=== PATIENT | male | born 1940 | race Caucasian/White ===

== ENCOUNTER 2020-07-21 12:00 | Inpatient (IN) | payer MEDICARE ==
[~2020-07-21] VITALS: Ht 165.1 cm; Wt 68.5 kg
[2020-07-21] MEDS ORDERED: metformin (12:25)
[2020-07-21] MEDS ORDERED: DEXAMETHASONE 10 MG/ML VIAL IV ONE (13:15)
[2020-07-21 13:17] LABS: HEMATOCRIT. 45.3 % (42.0-52.0); HEMOGLOBIN. 15.2 g/dL (14.0-18.0); MEAN CORPUSCULAR HEMOGLOBIN 28.7 pg (28.0-32.0); MEAN CORPUSCULAR VOLUME 85.9 fL (80.0-94.0); MEAN PLATELET VOLUME 8.6 fl (7.4-10.4); PLATELET 399 x1000/uL (130-400); RED BLOOD CELL COUNT 5.27 mill/uL (4.7-6.1); RED CELL DISTRIBUTION WIDTH 14.4 % (11.6-14.6)
[2020-07-21 13:26] LABS: CHLORIDE 100 mEq/L (98-107)
[2020-07-21 13:30] LABS: INR 1.1; PARTIAL THROMBOPLASTIN TIME 29.9 sec (23.4-31.0)
[2020-07-21 13:44] LABS: PLATELET ESTIMATE NORMAL
[2020-07-21] MEDS ORDERED: SODIUM CHLORIDE 0.9% 1000ML BAG (SEPSIS BOLUS) IV ONE (14:15)
[2020-07-21] MEDS ORDERED: AZITHROMYCIN 500 MG in DEXT 5% WATER 250 ML IV ONE (14:15)
[2020-07-21] MEDS ORDERED: CEFTRIAXONE 1 G PREMIX 50 ML IV ONE (14:15)
[2020-07-21] MEDS ORDERED: MORPHINE SULFATE 2 MG/ML CPJ (NOT FOR IM USE) IV PRN (15:15)
[2020-07-21] MEDS ORDERED: DIPHENHYDRAMINE 50MG/ML VIAL IV PRN (15:15)
[2020-07-21] MEDS ORDERED: GUAIFENESIN 200MG/10ML SUGAR FREE UDC PO PRN (15:15)
[2020-07-21] MEDS ORDERED: MAGNESIUM/ALUMINUM HYDROXIDE/SIMETHICONE 30ML UDC PO PRN (15:15)
[2020-07-21] MEDS ORDERED: CLONIDINE 0.1MG TABLET PO PRN (15:15)
[2020-07-21] MEDS ORDERED: LORAZEPAM 2MG/ML CPJ IV PRN (15:15)
[2020-07-21] MEDS ORDERED: NA PHOS,M-B/NA PHOS,DI-BA ENEMA 118ML PR PRN (15:15)
[2020-07-21] MEDS ORDERED: AZITHROMYCIN 500 MG in DEXT 5% WATER 250 ML IV SCH (15:15)
[2020-07-21] MEDS ORDERED: IPRATROPIUM/ALBUTEROL 0.5-3(2.5)MG/3ML NEB NEB PRN (15:15)
[2020-07-21] MEDS ORDERED: ONDANSETRON HCL 4MG/2ML INJ IV PRN (15:15)
[2020-07-21] MEDS: ENOXAPARIN 40MG/0.4ML SYR SUBCUT SCH (16:36)
[2020-07-21] MEDS: ASCORBIC ACID 500 MG TABLET PO SCH (21:00)
[2020-07-21] MEDS: ERGOCALCIFEROL 50000UNITS CAPSULE PO SCH (21:00)
[2020-07-21 23:21] LABS: CHLORIDE 107 mEq/L (98-107)
[2020-07-21] MEDS: HYDROCODONE/ACETAMINOPHEN 5/325MG TABLET PO PRN (23:24)
[2020-07-22 03:57] LABS: BASOPHILS % 0.1 % (0.0-2.0); HEMATOCRIT. 43.6 % (42.0-52.0); HEMOGLOBIN. 13.9 g/dL (14.0-18.0); MEAN CORPUSCULAR HEMOGLOBIN 28.1 pg (28.0-32.0); MEAN CORPUSCULAR VOLUME 88.2 fL (80.0-94.0); MEAN PLATELET VOLUME 8.9 fl (7.4-10.4); MONOCYTES % 5.1 % (2.0-8.0); NEUTROPHILS % 82.8 % (40.0-76.0); PLATELET 354 x1000/uL (130-400); RED BLOOD CELL COUNT 4.94 mill/uL (4.7-6.1); RED CELL DISTRIBUTION WIDTH 14.4 % (11.6-14.6)
[2020-07-22 04:03] LABS: CHLORIDE 105 mEq/L (98-107)
[2020-07-22 04:10] LABS: LDL CHOLESTEROL 70 mg/dL (5-100)
[2020-07-22 04:12] LABS: HDL CHOLESTEROL 21 mg/dL (40-59); T4 FREE 1.13 ng/dL (0.76-1.46)
[2020-07-22] MEDS: HYDROCODONE/ACETAMINOPHEN 5/325MG TABLET PO PRN ×2 (04:53→06:13)
[2020-07-22 08:12] LABS: BG BASE EXCESS -5.5 mmol/L (-2.0-2.0); BG CARBOXYHEMOGLOBIN 0.4 % (0.5-1.5); BG DEOXYHEMOGLOBIN 6.8 % (0.0-5.0); BG HCO3 ACT 18.1 mmol/L (22.0-26.0); BG OXYGEN SATURATION 93.2 % (92.0-98.5); BG OXYHEMOGLOBIN 92.8 % (94.0-97.0); BG PCO2 30.2 mmHg (35.0-45.0); BG PH 7.396 (7.350-7.450); BG PO2 69.1 mmHg (75.0-100.0); BG SAMPLE SITE RIGHT BRACHIAL; BG TOTAL HEMOGLOBIN 13.9 g/dL (12.0-18.0); BG VENT MODE MASK - NRB
[2020-07-22] MEDS: ASCORBIC ACID 500 MG TABLET PO SCH ×2 (09:02→21:00)
[2020-07-22] MEDS: ASPIRIN 81MG EC TABLET PO SCH (09:02)
[2020-07-22 09:39] LABS: T4 FREE 1.05 ng/dL (0.76-1.46)
[2020-07-22] MEDS ORDERED: IOHEXOL-350 100 ML BOTTLE ONE (15:01)
[2020-07-22 15:42] LABS: CREATINE KINASE 45 IU/L (39-308); CREATINE KINASE MB FRACTION < 1.0 ng/mL (0.5-3.6)
[2020-07-22] MEDS: AZITHROMYCIN 500 MG in DEXT 5% WATER 250 ML IV SCH (16:16)
[2020-07-22] MEDS: ENOXAPARIN 40MG/0.4ML SYR SUBCUT SCH (16:22)
[2020-07-22] MEDS: CEFTRIAXONE SODIUM 1 G/VIAL IM SCH (19:00)
[2020-07-22] MEDS ORDERED: LIDOCAINE HCL/PF 1% 10 MG/ML 5ML VIAL IJ SCH (19:00)
[2020-07-22] MEDS: DEXAMETHASONE 10 MG/ML VIAL IV SCH (19:34)
[2020-07-23 01:30] LABS: CREATINE KINASE 67 IU/L (39-308)
[2020-07-23 01:31] LABS: CREATINE KINASE MB FRACTION < 1.0 ng/mL (0.5-3.6)
[2020-07-23 05:27] LABS: CREATINE KINASE 79 IU/L (39-308)
[2020-07-23 05:28] LABS: CREATINE KINASE MB FRACTION 1.3 ng/mL (0.5-3.6)
[2020-07-23 08:10] LABS: BG BASE EXCESS -4.6 mmol/L (-2.0-2.0); BG CARBOXYHEMOGLOBIN 0.9 % (0.5-1.5); BG DEOXYHEMOGLOBIN 3.4 % (0.0-5.0); BG HCO3 ACT 18.2 mmol/L (22.0-26.0); BG METHEMOGLOBIN 0.1 % (0.0-1.5); BG OXYGEN SATURATION 96.6 % (92.0-98.5); BG OXYHEMOGLOBIN 95.6 % (94.0-97.0); BG PCO2 28.2 mmHg (35.0-45.0); BG PH 7.427 (7.350-7.450); BG PO2 86.1 mmHg (75.0-100.0); BG SAMPLE SITE RIGHT BRACHIAL; BG TOTAL HEMOGLOBIN 15.1 g/dL (12.0-18.0); BG VENT MODE MASK - SIMPLE
[2020-07-23] MEDS: DEXAMETHASONE 10 MG/ML VIAL IV SCH (10:09)
[2020-07-23] MEDS: CEFTRIAXONE SODIUM 1 G/VIAL IM SCH (10:09)
[2020-07-23] MEDS: ASCORBIC ACID 500 MG TABLET PO SCH ×2 (12:23→21:19)
[2020-07-23] MEDS: ASPIRIN 81MG EC TABLET PO SCH (12:45)
[2020-07-23] MEDS: ENOXAPARIN 40MG/0.4ML SYR SUBCUT SCH (16:00)
[2020-07-23] MEDS ORDERED: ENOXAPARIN 60MG/0.6ML SYR SUBCUT NR (17:30)
[2020-07-23] MEDS: AZITHROMYCIN 500 MG in DEXT 5% WATER 250 ML IV SCH (18:06)
[2020-07-24 03:00] VITALS: BP 150/99
[2020-07-24 04:00] VITALS: BP_SYST 150; BP_SYST 197; BP_DIAS 99
[2020-07-24] MEDS ORDERED: METF-874 MT (05:08)
[2020-07-24] MEDS: BLOOD SUGAR DIAGNOSTIC STRIP TEST SCH ×4 (06:21→21:00)
[2020-07-24] MEDS: INSULIN LISPRO 100 UNITS/ML SUBCUT SCH ×4 (06:49→21:54)
[2020-07-24 07:26] LABS: BASOPHILS % 0.3 % (0.0-2.0); EOSINOPHILS % 0.1 % (0.0-5.0); HEMATOCRIT. 45.4 % (42.0-52.0); HEMOGLOBIN. 14.7 g/dL (14.0-18.0); LYMPHOCYTES % 8.3 % (20.0-50.0); MEAN CORPUSCULAR HEMOGLOBIN 28.2 pg (28.0-32.0); MEAN CORPUSCULAR VOLUME 87.1 fL (80.0-94.0); MONOCYTES % 6.3 % (2.0-8.0); PLATELET 485 x1000/uL (130-400); RED BLOOD CELL COUNT 5.21 mill/uL (4.7-6.1); RED CELL DISTRIBUTION WIDTH 14.6 % (11.6-14.6)
[2020-07-24 07:46] LABS: CHLORIDE 102 mEq/L (98-107)
[2020-07-24 08:00] VITALS: BP 153/99
[2020-07-24 09:08] LABS: BG BASE EXCESS -3.3 mmol/L (-2.0-2.0); BG CARBOXYHEMOGLOBIN 0.8 % (0.5-1.5); BG DEOXYHEMOGLOBIN 4.1 % (0.0-5.0); BG FRACTION INSPIRED OXYGEN 100; BG HCO3 ACT 19.3 mmol/L (22.0-26.0); BG METHEMOGLOBIN 0.3 % (0.0-1.5); BG OXYGEN SATURATION 95.9 % (92.0-98.5); BG OXYHEMOGLOBIN 94.8 % (94.0-97.0); BG PCO2 28.9 mmHg (35.0-45.0); BG PH 7.443 (7.350-7.450); BG PO2 78.8 mmHg (75.0-100.0); BG SAMPLE SITE RIGHT RADIAL; BG VENT MODE MASK - NRB
[2020-07-24] MEDS: ASPIRIN 81MG EC TABLET PO SCH (10:16)
[2020-07-24] MEDS: ASCORBIC ACID 500 MG TABLET PO SCH ×2 (10:17→21:54)
[2020-07-24] MEDS: DEXAMETHASONE 10 MG/ML VIAL IV SCH (10:17)
[2020-07-24] MEDS: CEFTRIAXONE SODIUM 1 G/VIAL IM SCH (10:19)
[2020-07-24 12:00] VITALS: BP 151/93
[2020-07-24] MEDS: AZITHROMYCIN 500 MG in DEXT 5% WATER 250 ML IV SCH (15:09)
[2020-07-24 16:00] VITALS: BP 146/94
[2020-07-24] MEDS: ENOXAPARIN 40MG/0.4ML SYR SUBCUT SCH (18:08)
[2020-07-24 20:00] VITALS: BP 137/83
[2020-07-25] VITALS: BP 151/82
[2020-07-25 04:00] VITALS: BP 155/85
[2020-07-25] MEDS: BLOOD SUGAR DIAGNOSTIC STRIP TEST SCH ×4 (07:01→21:25)
[2020-07-25 08:00] VITALS: BP 160/103
[2020-07-25] MEDS: INSULIN LISPRO 100 UNITS/ML SUBCUT SCH ×4 (08:52→21:00)
[2020-07-25] MEDS: DEXAMETHASONE 10 MG/ML VIAL IV SCH (08:55)
[2020-07-25] MEDS: ASPIRIN 81MG EC TABLET PO SCH (08:55)
[2020-07-25] MEDS: ASCORBIC ACID 500 MG TABLET PO SCH ×2 (08:55→21:20)
[2020-07-25] MEDS: CEFTRIAXONE SODIUM 1 G/VIAL IV SCH ×2 (11:05→12:50)
[2020-07-25 12:00] VITALS: BP 149/90
[2020-07-25] MEDS: INSULIN GLARGINE UD 100 UNITS/ML SYR SUBCUT SCH (13:02)
[2020-07-25] MEDS: AZITHROMYCIN 500 MG in DEXT 5% WATER 250 ML IV SCH (14:48)
[2020-07-25] MEDS ORDERED: CEFTRIAXONE SODIUM 1 G/VIAL IM SCH (14:57)
[2020-07-25] MEDS: HYDRALAZINE HCL 50MG TABLET PO SCH ×2 (15:16→21:20)
[2020-07-25 16:00] VITALS: BP 162/83
[2020-07-25] MEDS: ENOXAPARIN 40MG/0.4ML SYR SUBCUT SCH (17:23)
[2020-07-25 20:00] VITALS: BP 158/88
[2020-07-26] VITALS: BP 129/69
[2020-07-26 04:00] VITALS: BP 145/84
[2020-07-26] MEDS: HYDRALAZINE HCL 50MG TABLET PO SCH ×3 (05:52→20:49)
[2020-07-26] MEDS: BLOOD SUGAR DIAGNOSTIC STRIP TEST SCH ×4 (05:55→20:58)
[2020-07-26 07:33] LABS: BASOPHILS % 0.1 % (0.0-2.0); EOSINOPHILS % 0.4 % (0.0-5.0); HEMATOCRIT. 45.5 % (42.0-52.0); HEMOGLOBIN. 14.7 g/dL (14.0-18.0); MEAN CORPUSCULAR VOLUME 86.8 fL (80.0-94.0); MEAN PLATELET VOLUME 8.9 fl (7.4-10.4); MONOCYTES % 8.1 % (2.0-8.0); NEUTROPHILS % 80.4 % (40.0-76.0); PLATELET 407 x1000/uL (130-400); RED BLOOD CELL COUNT 5.24 mill/uL (4.7-6.1); RED CELL DISTRIBUTION WIDTH 14.5 % (11.6-14.6)
[2020-07-26] MEDS: INSULIN LISPRO 100 UNITS/ML SUBCUT SCH ×4 (07:40→20:58)
[2020-07-26 07:43] LABS: CHLORIDE 102 mEq/L (98-107)
[2020-07-26 08:00] VITALS: BP 139/71
[2020-07-26] MEDS ORDERED: CEFTRIAXONE SODIUM 1 G/VIAL IM SCH (09:00)
[2020-07-26] MEDS: DEXAMETHASONE 10 MG/ML VIAL IV SCH (09:24)
[2020-07-26] MEDS: ASCORBIC ACID 500 MG TABLET PO SCH ×2 (09:24→20:48)
[2020-07-26] MEDS: ASPIRIN 81MG EC TABLET PO SCH (09:24)
[2020-07-26] MEDS: INSULIN GLARGINE UD 100 UNITS/ML SYR SUBCUT SCH (10:10)
[2020-07-26 12:00] VITALS: BP 141/79
[2020-07-26] MEDS ORDERED: CEFTRIAXONE 1 G PREMIX 50 ML IV SCH (13:00)
[2020-07-26] MEDS ORDERED: CEFTRIAXONE 1,000 MG in DEXTROSE 5% WATER 50 ML IV SCH (14:00)
[2020-07-26 16:00] VITALS: BP 125/85
[2020-07-26] MEDS: ENOXAPARIN 40MG/0.4ML SYR SUBCUT SCH (18:06)
[2020-07-26 20:00] VITALS: BP 128/80
[2020-07-26] MEDS: CEFTRIAXONE 1,000 MG in DEXTROSE 5% WATER 50 ML IV SCH (21:38)
[2020-07-26] MEDS: AZITHROMYCIN 500 MG in DEXT 5% WATER 250 ML IV SCH (22:55)
[2020-07-26] MEDS: ACETAMINOPHEN 325MG TABLET PO PRN (23:27)
[2020-07-27] VITALS: BP 121/79
[2020-07-27 04:00] VITALS: BP 127/71
[2020-07-27] MEDS: BLOOD SUGAR DIAGNOSTIC STRIP TEST SCH ×4 (05:48→20:50)
[2020-07-27] MEDS: HYDRALAZINE HCL 50MG TABLET PO SCH ×3 (05:59→21:55)
[2020-07-27 08:00] VITALS: BP 132/76
[2020-07-27] MEDS: ASPIRIN 81MG EC TABLET PO SCH (08:21)
[2020-07-27] MEDS: ASCORBIC ACID 500 MG TABLET PO SCH ×2 (08:21→20:28)
[2020-07-27] MEDS: DEXAMETHASONE 10 MG/ML VIAL IV SCH (08:21)
[2020-07-27] MEDS: INSULIN LISPRO 100 UNITS/ML SUBCUT SCH ×4 (08:22→20:50)
[2020-07-27] MEDS: INSULIN GLARGINE UD 100 UNITS/ML SYR SUBCUT SCH (10:17)
[2020-07-27] MEDS: ACETAMINOPHEN 325MG TABLET PO PRN ×2 (11:23→17:31)
[2020-07-27 12:00] VITALS: BP 130/83
[2020-07-27 16:00] VITALS: BP 120/79
[2020-07-27] MEDS: ENOXAPARIN 40MG/0.4ML SYR SUBCUT SCH (16:00)
[2020-07-27 20:00] VITALS: BP 112/66
[2020-07-27] MEDS: CEFTRIAXONE 1,000 MG in DEXTROSE 5% WATER 50 ML IV SCH (20:28)
[2020-07-27] MEDS: AZITHROMYCIN 500 MG in DEXT 5% WATER 250 ML IV SCH (21:55)
[2020-07-28] VITALS: BP 134/73
[2020-07-28] MEDS ORDERED: NITROGLYCERIN 0.4MG TABLET SL SL PRN (04:30)
[2020-07-28] MEDS: HYDRALAZINE HCL 50MG TABLET PO SCH ×3 (05:48→21:47)
[2020-07-28] MEDS: OMEPRAZOLE 20MG CAPSULE EXTENDED RELEASE PO SCH (05:48)
[2020-07-28] MEDS: BLOOD SUGAR DIAGNOSTIC STRIP TEST SCH ×4 (05:54→21:37)
[2020-07-28] MEDS: INSULIN LISPRO 100 UNITS/ML SUBCUT SCH ×4 (07:40→21:00)
[2020-07-28] MEDS: DEXAMETHASONE 10 MG/ML VIAL IV SCH (08:58)
[2020-07-28] MEDS: ERGOCALCIFEROL 50000UNITS CAPSULE PO SCH (09:20)
[2020-07-28] MEDS: ASCORBIC ACID 500 MG TABLET PO SCH ×2 (09:20→21:46)
[2020-07-28] MEDS: ASPIRIN 81MG EC TABLET PO SCH (09:20)
[2020-07-28 09:49] VITALS: BP 139/70
[2020-07-28] MEDS: INSULIN GLARGINE UD 100 UNITS/ML SYR SUBCUT SCH (10:52)
[2020-07-28] MEDS ORDERED: LORAZEPAM 2MG/ML CPJ IV PRN (11:15)
[2020-07-28 13:34] VITALS: BP 120/71
[2020-07-28 17:02] VITALS: BP 130/76
[2020-07-28] MEDS: ENOXAPARIN 40MG/0.4ML SYR SUBCUT SCH (18:43)
[2020-07-28 20:00] VITALS: BP 138/70
[2020-07-28] MEDS: POLYETHYLENE GLYCOL 3350 (17GM) 1 DOSE PACK PO PRN (21:46)
[2020-07-28] MEDS: CEFTRIAXONE 1,000 MG in DEXTROSE 5% WATER 50 ML IV SCH (21:48)
[2020-07-29] VITALS (7 sets, daily range): BP systolic 126–137; BP diastolic 60–75
[2020-07-29] MEDS: OMEPRAZOLE 20MG CAPSULE EXTENDED RELEASE PO SCH (06:57)
[2020-07-29] MEDS: HYDRALAZINE HCL 50MG TABLET PO SCH ×3 (06:58→22:21)
[2020-07-29] MEDS: BLOOD SUGAR DIAGNOSTIC STRIP TEST SCH ×4 (07:38→21:00)
[2020-07-29] MEDS: INSULIN LISPRO 100 UNITS/ML SUBCUT SCH ×4 (07:40→23:47)
[2020-07-29] MEDS: DEXAMETHASONE 10 MG/ML VIAL IV SCH (09:53)
[2020-07-29] MEDS: ASCORBIC ACID 500 MG TABLET PO SCH ×2 (09:53→22:20)
[2020-07-29] MEDS: ASPIRIN 81MG EC TABLET PO SCH (09:53)
[2020-07-29] MEDS: INSULIN GLARGINE UD 100 UNITS/ML SYR SUBCUT SCH (10:00)
[2020-07-29] MEDS: ENOXAPARIN 40MG/0.4ML SYR SUBCUT SCH (16:58)
[2020-07-29 18:01] LABS: BG BASE EXCESS -1.2 mmol/L (-2.0-2.0); BG DEOXYHEMOGLOBIN 1.2 % (0.0-5.0); BG FRACTION INSPIRED OXYGEN 100; BG HCO3 ACT 22.6 mmol/L (22.0-26.0); BG METHEMOGLOBIN 0.2 % (0.0-1.5); BG OXYGEN SATURATION 98.8 % (92.0-98.5); BG OXYHEMOGLOBIN 98.6 % (94.0-97.0); BG PCO2 35.1 mmHg (35.0-45.0); BG PH 7.426 (7.350-7.450); BG PO2 163.9 mmHg (75.0-100.0); BG SAMPLE SITE LEFT BRACHIAL; BG TOTAL HEMOGLOBIN 14.3 g/dL (12.0-18.0); BG VENT MODE MASK - NRB
[2020-07-29] MEDS: CEFTRIAXONE 1,000 MG in DEXTROSE 5% WATER 50 ML IV SCH (22:20)
[2020-07-30] VITALS: BP 129/70
[2020-07-30 04:00] VITALS: BP 125/76
[2020-07-30] MEDS: BLOOD SUGAR DIAGNOSTIC STRIP TEST SCH ×4 (06:35→21:00)
[2020-07-30] MEDS: INSULIN LISPRO 100 UNITS/ML SUBCUT SCH ×4 (06:35→23:21)
[2020-07-30] MEDS: HYDRALAZINE HCL 50MG TABLET PO SCH ×3 (07:01→23:17)
[2020-07-30 08:00] VITALS: BP 113/68
[2020-07-30] MEDS: DEXAMETHASONE 10 MG/ML VIAL IV SCH (09:34)
[2020-07-30] MEDS: ASPIRIN 81MG EC TABLET PO SCH (09:34)
[2020-07-30] MEDS: FAMOTIDINE 20MG TABLET PO SCH ×2 (09:34→23:18)
[2020-07-30] MEDS: ASCORBIC ACID 500 MG TABLET PO SCH ×2 (09:34→23:17)
[2020-07-30] MEDS: INSULIN GLARGINE UD 100 UNITS/ML SYR SUBCUT SCH (09:35)
[2020-07-30 11:54] VITALS: BP 132/74
[2020-07-30 16:00] VITALS: BP 142/80
[2020-07-30] MEDS: ENOXAPARIN 40MG/0.4ML SYR SUBCUT SCH (17:46)
[2020-07-30 20:00] VITALS: BP 130/80
[2020-07-30] MEDS: CEFTRIAXONE 1,000 MG in DEXTROSE 5% WATER 50 ML IV SCH (21:04)
[2020-07-31] VITALS: BP 132/82
[2020-07-31 04:00] VITALS: BP 128/89
[2020-07-31] MEDS: HYDRALAZINE HCL 50MG TABLET PO SCH ×3 (06:00→23:10)
[2020-07-31] MEDS: BLOOD SUGAR DIAGNOSTIC STRIP TEST SCH ×4 (07:10→21:00)
[2020-07-31 08:00] VITALS: BP 138/70
[2020-07-31] MEDS: ASPIRIN 81MG EC TABLET PO SCH (08:42)
[2020-07-31] MEDS: ASCORBIC ACID 500 MG TABLET PO SCH ×2 (08:42→23:10)
[2020-07-31] MEDS: DEXAMETHASONE 10 MG/ML VIAL IV SCH (08:42)
[2020-07-31] MEDS: INSULIN LISPRO 100 UNITS/ML SUBCUT SCH ×4 (08:43→21:00)
[2020-07-31] MEDS: INSULIN GLARGINE UD 100 UNITS/ML SYR SUBCUT SCH (11:01)
[2020-07-31 12:00] VITALS: BP 142/83
[2020-07-31] MEDS: FAMOTIDINE 20MG TABLET PO SCH ×2 (15:11→23:10)
[2020-07-31] MEDS: ENOXAPARIN 40MG/0.4ML SYR SUBCUT SCH (15:12)
[2020-07-31 16:00] VITALS: BP 146/77
[2020-07-31 20:00] VITALS: BP 121/67
[2020-08-01] VITALS: BP 122/68
[2020-08-01 04:00] VITALS: BP 127/64
[2020-08-01] MEDS: HYDRALAZINE HCL 50MG TABLET PO SCH ×3 (05:42→21:44)
[2020-08-01 06:03] LABS: BASOPHILS % 0.4 % (0.0-2.0); EOSINOPHILS % 0.7 % (0.0-5.0); HEMATOCRIT. 38.6 % (42.0-52.0); HEMOGLOBIN. 12.5 g/dL (14.0-18.0); LYMPHOCYTES % 19.3 % (20.0-50.0); MEAN CORPUSCULAR HEMOGLOBIN 28.3 pg (28.0-32.0); MEAN CORPUSCULAR VOLUME 87.4 fL (80.0-94.0); MEAN PLATELET VOLUME 9.9 fl (7.4-10.4); MONOCYTES % 11.1 % (2.0-8.0); NEUTROPHILS % 68.5 % (40.0-76.0); PLATELET 282 x1000/uL (130-400); RED BLOOD CELL COUNT 4.42 mill/uL (4.7-6.1); RED CELL DISTRIBUTION WIDTH 14.1 % (11.6-14.6)
[2020-08-01 06:18] LABS: CHLORIDE 102 mEq/L (98-107)
[2020-08-01] MEDS: BLOOD SUGAR DIAGNOSTIC STRIP TEST SCH ×4 (06:42→21:44)
[2020-08-01] MEDS: INSULIN LISPRO 100 UNITS/ML SUBCUT SCH ×4 (07:40→21:43)
[2020-08-01 08:00] VITALS: BP 141/68
[2020-08-01] MEDS: FAMOTIDINE 20MG TABLET PO SCH ×2 (09:16→21:43)
[2020-08-01] MEDS: ASCORBIC ACID 500 MG TABLET PO SCH ×2 (09:16→21:44)
[2020-08-01] MEDS: DEXAMETHASONE 4MG/ML 1ML VIAL PO SCH (09:16)
[2020-08-01] MEDS: ASPIRIN 81MG EC TABLET PO SCH (09:17)
[2020-08-01] MEDS: INSULIN GLARGINE UD 100 UNITS/ML SYR SUBCUT SCH (11:28)
[2020-08-01 12:00] VITALS: BP 131/79
[2020-08-01 16:00] VITALS: BP 130/79
[2020-08-01] MEDS: ENOXAPARIN 40MG/0.4ML SYR SUBCUT SCH (17:47)
[2020-08-01 20:00] VITALS: BP 138/83
[2020-08-02] VITALS: BP 131/75
[2020-08-02 04:00] VITALS: BP 108/69
[2020-08-02] MEDS: HYDRALAZINE HCL 50MG TABLET PO SCH ×3 (06:00→21:56)
[2020-08-02] MEDS: BLOOD SUGAR DIAGNOSTIC STRIP TEST SCH ×4 (06:38→21:36)
[2020-08-02] MEDS: INSULIN LISPRO 100 UNITS/ML SUBCUT SCH ×4 (07:40→21:57)
[2020-08-02 08:00] VITALS: BP 110/72
[2020-08-02] MEDS: ASPIRIN 81MG EC TABLET PO SCH (08:20)
[2020-08-02] MEDS: DEXAMETHASONE 4MG/ML 1ML VIAL PO SCH (08:20)
[2020-08-02] MEDS: ASCORBIC ACID 500 MG TABLET PO SCH ×2 (08:20→21:55)
[2020-08-02] MEDS: FAMOTIDINE 20MG TABLET PO SCH ×2 (08:20→21:55)
[2020-08-02] MEDS: INSULIN GLARGINE UD 100 UNITS/ML SYR SUBCUT SCH (10:24)
[2020-08-02 12:00] VITALS: BP 122/74
[2020-08-02 16:00] VITALS: BP 125/66
[2020-08-02] MEDS: ENOXAPARIN 40MG/0.4ML SYR SUBCUT SCH (16:57)
[2020-08-02 20:00] VITALS: BP 138/78
[2020-08-03] VITALS: BP 120/58
[2020-08-03 04:00] VITALS: BP 127/69
[2020-08-03] MEDS: INSULIN LISPRO 100 UNITS/ML SUBCUT SCH ×4 (05:53→21:33)
[2020-08-03] MEDS: BLOOD SUGAR DIAGNOSTIC STRIP TEST SCH ×4 (05:53→21:33)
[2020-08-03] MEDS: HYDRALAZINE HCL 50MG TABLET PO SCH ×3 (05:53→21:32)
[2020-08-03 08:00] VITALS: BP 128/62
[2020-08-03] MEDS: ASCORBIC ACID 500 MG TABLET PO SCH ×2 (09:27→21:32)
[2020-08-03] MEDS: ASPIRIN 81MG EC TABLET PO SCH (09:27)
[2020-08-03] MEDS: DEXAMETHASONE 4MG/ML 1ML VIAL PO SCH (09:27)
[2020-08-03] MEDS: FAMOTIDINE 20MG TABLET PO SCH ×2 (09:27→21:32)
[2020-08-03] MEDS: INSULIN GLARGINE UD 100 UNITS/ML SYR SUBCUT SCH (11:39)
[2020-08-03 12:00] VITALS: BP 122/72
[2020-08-03 16:00] VITALS: BP 128/62
[2020-08-03] MEDS: ENOXAPARIN 40MG/0.4ML SYR SUBCUT SCH (17:34)
[2020-08-03 20:00] VITALS: BP 118/71
[2020-08-04 04:00] VITALS: BP 136/72
[2020-08-04] MEDS: BLOOD SUGAR DIAGNOSTIC STRIP TEST SCH ×4 (06:19→21:00)
[2020-08-04] MEDS: INSULIN LISPRO 100 UNITS/ML SUBCUT SCH ×4 (06:19→21:00)
[2020-08-04] MEDS: HYDRALAZINE HCL 50MG TABLET PO SCH ×3 (06:20→20:38)
[2020-08-04 08:00] VITALS: BP 115/67
[2020-08-04] MEDS: ASCORBIC ACID 500 MG TABLET PO SCH ×2 (11:27→20:38)
[2020-08-04] MEDS: FAMOTIDINE 20MG TABLET PO SCH ×2 (11:27→20:38)
[2020-08-04] MEDS: DEXAMETHASONE 4MG/ML 1ML VIAL PO SCH (11:27)
[2020-08-04] MEDS: ASPIRIN 81MG EC TABLET PO SCH (11:27)
[2020-08-04] MEDS: ERGOCALCIFEROL 50000UNITS CAPSULE PO SCH (11:28)
[2020-08-04] MEDS: INSULIN GLARGINE UD 100 UNITS/ML SYR SUBCUT SCH (11:50)
[2020-08-04 12:00] VITALS: BP 139/81
[2020-08-04] MEDS: ENOXAPARIN 40MG/0.4ML SYR SUBCUT SCH (14:48)
[2020-08-04 16:00] VITALS: BP 127/77
[2020-08-04 20:30] VITALS: BP 126/81
[2020-08-05 04:00] VITALS: BP_SYST 119; BP_SYST 123; BP_DIAS 71; BP_DIAS 75
[2020-08-05] MEDS: BLOOD SUGAR DIAGNOSTIC STRIP TEST SCH ×4 (07:10→21:00)
[2020-08-05] MEDS: INSULIN LISPRO 100 UNITS/ML SUBCUT SCH ×4 (07:40→21:00)
[2020-08-05] MEDS: ASPIRIN 81MG EC TABLET PO SCH (08:39)
[2020-08-05] MEDS: FAMOTIDINE 20MG TABLET PO SCH ×2 (08:39→22:00)
[2020-08-05] MEDS: ASCORBIC ACID 500 MG TABLET PO SCH ×2 (08:39→22:00)
[2020-08-05] MEDS: DEXAMETHASONE 4MG/ML 1ML VIAL PO SCH (08:39)
[2020-08-05] MEDS: INSULIN GLARGINE UD 100 UNITS/ML SYR SUBCUT SCH (11:19)
[2020-08-05 12:00] VITALS: BP 147/77
[2020-08-05] MEDS: HYDRALAZINE HCL 50MG TABLET PO SCH ×2 (14:45→22:00)
[2020-08-05 15:31] LABS: BG BASE EXCESS -2.8 mmol/L (-2.0-2.0); BG CARBOXYHEMOGLOBIN 0.5 % (0.5-1.5); BG DEOXYHEMOGLOBIN 15.5 % (0.0-5.0); BG HCO3 ACT 19.9 mmol/L (22.0-26.0); BG METHEMOGLOBIN 0.1 % (0.0-1.5); BG OXYGEN SATURATION 84.4 % (92.0-98.5); BG OXYHEMOGLOBIN 83.9 % (94.0-97.0); BG PCO2 29.8 mmHg (35.0-45.0); BG PH 7.442 (7.350-7.450); BG PO2 47.2 mmHg (75.0-100.0); BG SAMPLE SITE RIGHT BRACHIAL; BG TOTAL HEMOGLOBIN 16.1 g/dL (12.0-18.0); BG VENT MODE ROOM AIR
[2020-08-05 16:00] VITALS: BP 147/84
[2020-08-05] MEDS: ENOXAPARIN 40MG/0.4ML SYR SUBCUT SCH (18:28)
[2020-08-05 20:00] VITALS: BP 119/71
[2020-08-06] VITALS: BP 121/80
[2020-08-06 04:00] VITALS: BP 118/77
[2020-08-06] MEDS: HYDRALAZINE HCL 50MG TABLET PO SCH ×3 (06:52→22:19)
[2020-08-06] MEDS: INSULIN LISPRO 100 UNITS/ML SUBCUT SCH ×3 (07:21→21:00)
[2020-08-06] MEDS: BLOOD SUGAR DIAGNOSTIC STRIP TEST SCH ×4 (07:21→21:39)
[2020-08-06 08:00] VITALS: BP 112/88
[2020-08-06] MEDS: ASCORBIC ACID 500 MG TABLET PO SCH ×2 (09:33→22:19)
[2020-08-06] MEDS: ASPIRIN 81MG EC TABLET PO SCH (09:33)
[2020-08-06] MEDS: FAMOTIDINE 20MG TABLET PO SCH ×2 (09:33→22:19)
[2020-08-06] MEDS: DEXAMETHASONE 4MG/ML 1ML VIAL PO SCH (09:34)
[2020-08-06] MEDS: INSULIN GLARGINE UD 100 UNITS/ML SYR SUBCUT SCH (09:37)
[2020-08-06 12:00] VITALS: BP 148/91
[2020-08-06 16:00] VITALS: BP 138/88
[2020-08-06 20:00] VITALS: BP 120/66
[2020-08-07] VITALS: BP 118/60
[2020-08-07] MEDS: BLOOD SUGAR DIAGNOSTIC STRIP TEST SCH ×4 (06:05→21:00)
[2020-08-07] MEDS: HYDRALAZINE HCL 50MG TABLET PO SCH ×3 (06:43→22:43)
[2020-08-07] MEDS: POLYETHYLENE GLYCOL 3350 (17GM) 1 DOSE PACK PO PRN (06:43)
[2020-08-07] MEDS: INSULIN LISPRO 100 UNITS/ML SUBCUT SCH ×4 (06:56→21:00)
[2020-08-07 08:00] VITALS: BP 126/75
[2020-08-07] MEDS: DEXAMETHASONE 4MG/ML 1ML VIAL PO SCH (08:57)
[2020-08-07] MEDS: ASCORBIC ACID 500 MG TABLET PO SCH ×2 (08:57→22:42)
[2020-08-07] MEDS: FAMOTIDINE 20MG TABLET PO SCH ×2 (08:57→22:42)
[2020-08-07] MEDS: ASPIRIN 81MG EC TABLET PO SCH (08:57)
[2020-08-07] MEDS: INSULIN GLARGINE UD 100 UNITS/ML SYR SUBCUT SCH (10:47)
[2020-08-07 14:06] LABS: BG BASE EXCESS 1.1 mmol/L (-2.0-2.0); BG CARBOXYHEMOGLOBIN 0.5 % (0.5-1.5); BG DEOXYHEMOGLOBIN 5.5 % (0.0-5.0); BG FRACTION INSPIRED OXYGEN 28; BG HCO3 ACT 23.4 mmol/L (22.0-26.0); BG METHEMOGLOBIN 0.1 % (0.0-1.5); BG OXYGEN SATURATION 94.5 % (92.0-98.5); BG OXYHEMOGLOBIN 93.9 % (94.0-97.0); BG PCO2 30.9 mmHg (35.0-45.0); BG PH 7.498 (7.350-7.450); BG PO2 68.1 mmHg (75.0-100.0); BG SAMPLE SITE LEFT RADIAL; BG TOTAL HEMOGLOBIN 14.3 g/dL (12.0-18.0); BG VENT MODE NASAL CANNULA
[2020-08-07] MEDS: ENOXAPARIN 40MG/0.4ML SYR SUBCUT SCH ×2 (15:50→15:52)
[2020-08-07 16:00] VITALS: BP 138/78
[2020-08-07] MEDS: ACETAMINOPHEN 325MG TABLET PO PRN (18:07)
[2020-08-07 20:00] VITALS: BP 118/69
[2020-08-08] VITALS: BP 128/67
[2020-08-08] MEDS: DOCUSATE SODIUM 100MG CAPSULE PO PRN (03:58)
[2020-08-08 04:00] VITALS: BP 123/66
[2020-08-08] MEDS: HYDRALAZINE HCL 50MG TABLET PO SCH ×3 (05:17→21:35)
[2020-08-08] MEDS: BLOOD SUGAR DIAGNOSTIC STRIP TEST SCH ×4 (05:36→21:34)
[2020-08-08] MEDS: INSULIN LISPRO 100 UNITS/ML SUBCUT SCH ×4 (05:37→21:00)
[2020-08-08 08:00] VITALS: BP 143/77
[2020-08-08] MEDS: ASPIRIN 81MG EC TABLET PO SCH (09:00)
[2020-08-08] MEDS: DEXAMETHASONE 4MG/ML 1ML VIAL PO SCH (09:16)
[2020-08-08] MEDS: ASCORBIC ACID 500 MG TABLET PO SCH ×2 (09:16→21:35)
[2020-08-08] MEDS: FAMOTIDINE 20MG TABLET PO SCH ×2 (09:16→21:35)
[2020-08-08] MEDS: INSULIN GLARGINE UD 100 UNITS/ML SYR SUBCUT SCH (09:20)
[2020-08-08 12:00] VITALS: BP 133/70
[2020-08-08] MEDS: ENOXAPARIN 40MG/0.4ML SYR SUBCUT SCH (15:06)
[2020-08-08 16:00] VITALS: BP 116/67
[2020-08-08 20:00] VITALS: BP 121/82
[2020-08-09 00:01] VITALS: BP 151/75
[2020-08-09 04:00] VITALS: BP 121/70
[2020-08-09] MEDS: BLOOD SUGAR DIAGNOSTIC STRIP TEST SCH ×4 (06:32→21:46)
[2020-08-09] MEDS: INSULIN LISPRO 100 UNITS/ML SUBCUT SCH ×4 (06:41→21:00)
[2020-08-09] MEDS: HYDRALAZINE HCL 50MG TABLET PO SCH ×3 (06:41→22:27)
[2020-08-09 08:00] VITALS: BP 136/73
[2020-08-09] MEDS: FAMOTIDINE 20MG TABLET PO SCH ×2 (09:00→22:27)
[2020-08-09] MEDS: ASPIRIN 81MG EC TABLET PO SCH (09:00)
[2020-08-09] MEDS: ASCORBIC ACID 500 MG TABLET PO SCH ×2 (11:05→22:27)
[2020-08-09] MEDS: DEXAMETHASONE 4MG/ML 1ML VIAL PO SCH (11:06)
[2020-08-09] MEDS: INSULIN GLARGINE UD 100 UNITS/ML SYR SUBCUT SCH (11:07)
[2020-08-09 12:00] VITALS: BP 145/85
[2020-08-09 16:00] VITALS: BP 138/78
[2020-08-09] MEDS: ENOXAPARIN 40MG/0.4ML SYR SUBCUT SCH (16:24)
[2020-08-09 20:00] VITALS: BP 130/76
[2020-08-09] MEDS: DEXTROSE 50% WATER 50ML SYRINGE IV PRN (22:40)
[2020-08-10] MEDS: DEXTROSE 50% WATER 50ML SYRINGE IV PRN (01:41)
[2020-08-10] MEDS: BLOOD SUGAR DIAGNOSTIC STRIP TEST SCH ×2 (06:37→11:37)
[2020-08-10] MEDS: HYDRALAZINE HCL 50MG TABLET PO SCH ×2 (07:16→14:29)
[2020-08-10] MEDS: INSULIN LISPRO 100 UNITS/ML SUBCUT SCH ×2 (07:39→12:50)
[2020-08-10 08:00] VITALS: BP 129/69
[2020-08-10] MEDS: DEXAMETHASONE 4MG/ML 1ML VIAL PO SCH (09:20)
[2020-08-10] MEDS: ASCORBIC ACID 500 MG TABLET PO SCH (09:20)
[2020-08-10] MEDS: ASPIRIN 81MG EC TABLET PO SCH (09:20)
[2020-08-10] MEDS: FAMOTIDINE 20MG TABLET PO SCH (09:22)
[2020-08-10] MEDS: INSULIN GLARGINE UD 100 UNITS/ML SYR SUBCUT SCH (10:00)
[2020-08-10 11:10] VITALS: BP 125/70
[2020-08-10] MEDS: POLYETHYLENE GLYCOL 3350 (17GM) 1 DOSE PACK PO PRN (11:29)
[2020-08-10] MEDS: DOCUSATE SODIUM 100MG CAPSULE PO PRN (11:29)
== END 2020-08-10 15:40 | DRG 871 ==
LOC: ER 13:00 → MICUSO 14:55 → EDBEDREQ 14:59 → EDBEDREQSVC 14:59 → 8WST 07-24 01:01 → 6WST 08-09 17:38
PROVIDERS: ADMIT Internal Medicine; ATTEND Internal Medicine
PROC: 5A0935A Assistance with Respiratory Ventilation, Less than 24 Consecutive Hours, High Flow/Velocity Cannula (ICD-10-PCS; principal; 2020-07-23)
DX: A41.89 Other specified sepsis (principal); U07.1 COVID-19; G93.41 Metabolic encephalopathy; J12.82 Pneumonia due to coronavirus disease 2019; J96.01 Acute respiratory failure with hypoxia; D68.69 Other thrombophilia; E87.2 Acidosis; E11.9 Type 2 diabetes mellitus without complications; I10 Essential (primary) hypertension; K59.00 Constipation, unspecified; Z79.84 Long term (current) use of oral hypoglycemic drugs; Z79.899 Other long term (current) drug therapy
CPT/HCPCS: 36415; 36600; 71045; 71275; 80048; 80053; 82375; 82533; 82550; 82553; 82728; 82805; 82962; 83036; 83605; 83615; 83880; 84145; 84484; 85025; 86140; 93005; 93970; 99291; A6261; C9803; J0456; J0696; J1100; J1200; J1650; J1815; J2060; J3490; J7030; J7040; J7060; Q9967; U0003